=== PATIENT | female | born 1960 | race Caucasian/White ===

== ENCOUNTER 2016-10-28 23:19 | Emergency (ER) | payer MEDICAID, OTHER ==
[~2016-10-28] VITALS: Ht 170.2 cm; Wt 67.1 kg
[~2016-10-28 23:19] MED LIST: CLARITHROMYCIN500 MG PO
[2016-10-29 00:05] VITALS: BP 138/52
--- NOTE | 2016-10-29 00:52 | NUR ---
PT TAKEN TO BED 3
[2016-10-29] MEDS ORDERED: NACL 0.9% 1,000 ML IV ONE (00:59)
[2016-10-29] MEDS ORDERED: MORPHINE SULFATE 4 MG/ML SYR IVP ONE (01:00)
[2016-10-29] MEDS ORDERED: ONDANSETRON 4 MG/2 ML VIAL IVP ONE (01:00)
--- NOTE | 2016-10-29 01:00 | NUR ---
56Y FEMALE CAME TO ER C/O OF SEVERE ABD PAIN. STATES SHE HAS PAIN FOR MONTHS NOW AND GO TO HOSPITAL EVERYDAY FOR SAME PROBLEM. NO DISTRESS NOTED AND V/S TAKEN WNL.
--- NOTE | 2016-10-29 02:01 | NUR ---
PT TAKEN TO CT
[2016-10-29] MEDS ORDERED: ALUMINUM HYD/MAG/SIMETHICONE 30 ML, BELLADONNA/PHENOBARBITAL 10 ML, LIDOCAINE VISCOUS 2... PO ONE (03:20)
--- NOTE | 2016-10-29 03:40 | NUR ---
Dr. Garza evaluating patient at bedside.
[2016-10-29 04:30] VITALS: BP 125/55
--- NOTE | 2016-10-29 04:30 | NUR ---
REFUSED SIGN DISCHARGE INSTRUCTION. D/C'ED IV W/O COMPLICATION. CONDITION STABLE, NO C/O OF PAIN AT THIS POINT.
== END 2016-10-29 04:30 | disposition home or self-care (01) ==
LOC: MED 23:19
DX: R10.84 Generalized abdominal pain (principal); Z88.6 Allergy status to analgesic agent
CPT/HCPCS: 36415; 74176; 80053; 81002; 81025; 83690; 85025; 96361; 96374; 96375; 99285; J2270; J2405; J7030

== ENCOUNTER 2016-12-11 10:41 | Emergency (ER) | payer OTHER ==
[~2016-12-11] VITALS: Ht 165.1 cm; Wt 63.5 kg
[2016-12-11 10:49] VITALS: BP 116/68
[2016-12-11] MEDS ORDERED: NORCO 5/325 MG1 TAB PO (10:52)
[2016-12-11] MEDS ORDERED: NACL 0.9% 1,000 ML IV ONE (10:55)
--- NOTE | 2016-12-11 12:13 | NUR ---
Patient placed in bed 8 by EMS.
--- NOTE | 2016-12-11 12:17 | NUR ---
Pt taken to CT via rpio.
--- NOTE | 2016-12-11 12:38 | NUR ---
Patient being evaluated by Dr. Wood at bedside.
--- NOTE | 2016-12-11 12:40 | NUR ---
Patient is refusing to have an IV inserted. Patient states she is unable to provide UA specimen. Pt also states "I am unable to go right now." Dr. Wood made aware.
--- NOTE | 2016-12-11 12:47 | NUR ---
Patient is c/o headache at this time 04/22 and is requesting to have a pill for pain. Dr. Wood made aware.
[2016-12-11] MEDS ORDERED: ACETAMINOPHEN EXTRA STRENGTH 500 MG TAB PO ONE (12:50)
--- NOTE | 2016-12-11 12:51 | NUR ---
56/F luis e found outside sitting in the grass with complaints of generalized weakness and complaints of head feeling heavy. Patient states she had just got off the bus and was on her way to pay a bill. Patient states she suddenly felt her heart race and felt her head get heavy so she sat down in the grass near by. Patient is AOX4, clear speech. Patient denies chest pain, denies SOB. Patient states having hx of a brain anurysm. Pt has left sided weakness d/t a work r/t injury. 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
--- NOTE | 2016-12-11 12:52 | NUR ---
Dr. Wood at bedside with patient.
--- NOTE | 2016-12-11 13:42 | NUR ---
Patient appears to be resting comfortably in bed. Vital Signs within normal limits. Respirations even and unlabored.
--- NOTE | 2016-12-11 14:26 | NUR ---
Patient discharged with v/s stable. Written and verbal after care instructions given and explained. Patient alert, oriented and verbalized understanding of instructions. Ambulatory with steady gait. All questions addressed prior to discharge. ID band removed. Patient advised to follow up with PMD. Rx of KEPPRA AND XANAX given. Patient educated on indication of medication including possible reaction and side effects. Opportunity to ask questions provided and answered.
[2016-12-11 14:27] VITALS: BP 105/58
--- NOTE | 2016-12-11 14:27 | NUR ---
PT. REFUSED TO RETURN [facility]. STATED THAT IF HER PERSONAL INFORMATION GETS LOST THAT SHE TAKES RESPONSIBILITY
== END 2016-12-11 14:26 | disposition home or self-care (01) ==
LOC: MED 10:55
DX: F41.9 Anxiety disorder, unspecified (principal); G40.89 Other seizures; R03.0 Elevated blood-pressure reading, without diagnosis of hypertension; F20.9 Schizophrenia, unspecified; Z88.6 Allergy status to analgesic agent
CPT/HCPCS: 36415; 70450; 80053; 85025; 93005; 99285; G0480; G0482; J7030

== ENCOUNTER 2020-06-28 10:58 | Emergency (ER) | payer OTHER ==
[~2020-06-28] VITALS: Ht 170.2 cm; Wt 63.5 kg
[~2020-06-28 10:58] MED LIST changes: +ACET-8386 PO; -CLARITHROMYCIN500 MG PO
--- NOTE | 2020-06-28 10:58 | NUR ---
Patient BIBA BLS, transferred to bed 7. RN evaluating patient at bedside.
[2020-06-28 11:00] VITALS: BP 137/73
--- NOTE | 2020-06-28 11:09 | NUR ---
BIBA W C/O PULSATING HEADACHE TO BACK OF L SCALP X3 DAYS. PT A & O X4, BUE/BLE STRENGTH EVEN, NO SLURRED SPEECH OR FACIAL DROOP NOTED. AMBULATORY WITH STEADY GAIT. PERRLA 4MM. PT DENIES N/V/BLURRY VISION. PT REPORTS HAVING HX OF BRAIN ANEURYSM IN 2000. BED IN LOW POSITION, SIDE RAIL UP X1
--- NOTE | 2020-06-28 11:24 | NUR ---
Dr. Barreto is evaluating the patient at bedside.
[2020-06-28] MEDS ORDERED: ACETAMINOPHEN 650 MG/20.3 ML UDC PO ONE (11:30)
[2020-06-28] MEDS ORDERED: PROCHLORPERAZINE 5 MG TAB PO ONE (11:30)
[2020-06-28] MEDS ORDERED: diphenhydrAMINE 50 MG/ML VIAL IM ONE (11:30)
[2020-06-28] MEDS ORDERED: ACETAMINOPHEN 325 MG TAB PO ONE (11:40)
--- NOTE | 2020-06-28 12:25 | NUR ---
Patient states the pain to head has not improved after medications given. Patient appears bothered and annoyed when speaking to her. Patient states "I don't understand why you are substituting my medications." I requested for patient to clarify what she meant by substituation. I asked patient what she takes for pain that helps and pt replied [place]. I advised patient that I would notify the physician about head pain and concerns and have him speak with patient.
[2020-06-28] MEDS ORDERED: HYDROcodone/APAP 10/325 MG 1 TAB TAB PO STA (12:26)
--- NOTE | 2020-06-28 12:44 | NUR ---
Patient returned from CT scan.
--- NOTE | 2020-06-28 13:20 | NUR ---
pt states her headache has been mildly relieved at this time.
[2020-06-28 13:34] VITALS: BP 137/73
== END 2020-06-28 13:34 | disposition home or self-care (01) ==
LOC: MED 10:58
DX: G43.909 Migraine, unspecified, not intractable, without status migrainosus (principal); I67.1 Cerebral aneurysm, nonruptured
CPT/HCPCS: 70450; 96372; 99284; J1200; Q0164